=== PATIENT | female | born 1985 | race Caucasian/White ===

== ENCOUNTER 2023-01-17 16:49 | Outpatient (OUT) | payer BC, SELFPAY | END 2023-01-17 16:50 | PROVIDERS: PCP Family Medicine; Visit Provider Family Medicine | DX: G47.33 Obstructive sleep apnea (adult) (pediatric) (principal); R53.82 Chronic fatigue, unspecified; G47.00 Insomnia, unspecified | CPT/HCPCS: 95806 ==

== ENCOUNTER 2023-01-30 07:38 | Outpatient (OUT) | payer BC, SELFPAY ==
[2023-01-30 09:08] LABS: Alanine Aminotransferase 55 U/L (14-59); Albumin Globulin Ratio 0.8; Albumin Level 3.3 g/dL (3.4-5.0); Alkaline Phosphatase 89 U/L (46-116); Anion Gap 14.3; Aspartate Amino Transferase 34 U/L (15-37); BUN Creatinine Ratio 13.8; Bilirubin Total 0.3 mg/dL (0.2-1.0); Calcium 8.8 mg/dL (8.5-10.1); Carbon Dioxide 25.5 mmol/L (21.0-32.0); Chloride 104 mmol/L (98-107); Estimated GFR (African America >60 (>=60); Estimated GFR (Non-African Ame >60 (>=60); Globulin 4.1 g/dL; Glucose 99 mg/dL (74-106); Potassium 3.8 mmol/L (3.5-5.1); Sodium 140 mmol/L (136-145); Total Protein 7.4 g/dL (6.4-8.2)
[2023-01-30 09:16] LABS: Chol HDL Ratio 4.3; Cholesterol 235 mg/dL (<=200); HDL Cholesterol 55 mg/dL (40-60); Thyroid Stimulating Hormone 3.084 uIU/mL (0.358-3.740); Triglycerides 146 mg/dL (<=150); VLDL CHOLESTEROL 29.2 mg/dL
[2023-01-30 10:36] LABS: Free T4 0.92 ng/dL (0.76-1.46)
== END 2023-01-30 07:39 | disposition home or self-care (01) ==
LOC: LAB 07:42
PROVIDERS: PCP Family Medicine
DX: Z13.29 Encounter for screening for other suspected endocrine disorder (principal); Z00.00 Encounter for general adult medical examination without abnormal findings; Z13.220 Encounter for screening for lipoid disorders; E55.9 Vitamin D deficiency, unspecified
CPT/HCPCS: 36415; 80053; 80061; 82306; 84439; 84443; 85025

== ENCOUNTER 2023-03-06 19:54 | Outpatient (OUT) | payer BC, SELFPAY | END 2023-03-06 19:55 | disposition home or self-care (01) | LOC: SLEEP 19:55 | PROVIDERS: PCP Family Medicine; Visit Provider Family Medicine | DX: G47.33 Obstructive sleep apnea (adult) (pediatric) (principal) | CPT/HCPCS: 95811 ==